=== PATIENT | female | born 1955 | race Caucasian/White ===

== ENCOUNTER 2021-02-28 03:20 | Inpatient (IN) | payer BC ==
[~2021-02-28] VITALS: Ht 165.1 cm; Wt 54.0 kg
[2021-02-28 03:47] LABS: HEMOGLOBIN 12.9 gm/dl (12.3-15.3); RED BLOOD COUNT 4.02 M/UL (4.00-5.10); WHITE BLOOD COUNT 9.8 K/UL (4.5-11.0)
[2021-02-28 04:26] LABS: BUN/CREATININE RATIO 15 (0-10)
[2021-02-28] MEDS ORDERED: ATENOLOL25 MG PO (06:06)
[2021-02-28] MEDS ORDERED: CHILDREN'S ASPI81 MG PO (06:06)
[2021-02-28] MEDS ORDERED: VITAMIN D 40400 UNIT PO (06:07)
[2021-02-28] MEDS ORDERED: MULTI-VITAMIN1 EACH PO (06:08)
[2021-02-28 14:55] LABS: HEMOGLOBIN 11.6 gm/dl (12.3-15.3); RED BLOOD COUNT 3.65 M/UL (4.00-5.10)
[2021-02-28 15:25] LABS: BUN/CREATININE RATIO 20 (0-10)
[2021-03-01 06:13] LABS: HEMOGLOBIN 11.1 gm/dl (12.3-15.3); RED BLOOD COUNT 3.5 M/UL (4.00-5.10); WHITE BLOOD COUNT 10.9 K/UL (4.5-11.0)
[2021-03-01 07:02] LABS: BUN/CREATININE RATIO 21 (0-10)
--- NOTE | 2021-03-01 22:18 | NUR ---
PT HAS BEEN STAYING LOW 87%-89%, PT HAS REMOVED O2 ON SEVERAL OCCASIONS, PT HAS BEEN MADE AWARE THAT THEIR O2 IS READING LOW.
--- NOTE | 2021-03-02 03:12 | NUR ---
PT STATES "I WANT TO TAKE THIS OXYGEN OFF FOR A HOUR, IT IS DRYING ME OUT AND HAS GIVEN ME A COLD". ADVISED PT THAT THEIR OXYGEN HAS BEEN LOW THROUGHOUT THE NIGHT AND IMPORTANCE OF WEARING OXYGEN TO KEEP O2 LEVEL UP AND HOW THIS COULD PUT MORE STRESS ON THEIR HEART GIVEN THE RECENT STEMI THEY SUFFERED FROM.
--- NOTE | 2021-03-02 05:09 | NUR ---
PT STATES "THIS NC IS DRIPPING WATER DOWN MY FACE I WANT TO TAKE IT OFF" EXPLAINED TO PT THE EFFECTS OF HAVING LOW O2. OFFERED A MASK TO TRY, RT CAME TO ROOM AND SWITCHED PT OVER TO MASK. PT STATES "THIS IS BETTER"
[2021-03-02 07:56] LABS: HEMOGLOBIN 11.5 gm/dl (12.3-15.3); RED BLOOD COUNT 3.73 M/UL (4.00-5.10); WHITE BLOOD COUNT 13.5 K/UL (4.5-11.0)
[2021-03-02 08:47] LABS: BUN/CREATININE RATIO 16 (0-10)
[2021-03-03 05:12] LABS: HEMOGLOBIN 12.5 gm/dl (12.3-15.3); RED BLOOD COUNT 3.96 M/UL (4.00-5.10); WHITE BLOOD COUNT 11.9 K/UL (4.5-11.0)
[2021-03-03 05:35] LABS: BUN/CREATININE RATIO 16 (0-10)
[2021-03-04 05:24] LABS: HEMOGLOBIN 13.8 gm/dl (12.3-15.3); RED BLOOD COUNT 4.27 M/UL (4.00-5.10); WHITE BLOOD COUNT 11.7 K/UL (4.5-11.0)
[2021-03-04 05:45] LABS: BUN/CREATININE RATIO 20 (0-10)
== END 2021-03-04 11:30 | disposition home or self-care (01) | DRG 246 ==
LOC: ER1 03:20 → CCU 03:44 → CDU 03:44 → CCU 05:52
PROVIDERS: Family Medicine; Internal Medicine Cardiovascular Disease; Internal Medicine Pulmonary Disease; Physician Assistant; ADMIT Internal Medicine Interventional Cardiology
PROC: 027034Z Dilation of Coronary Artery, One Artery with Drug-eluting Intraluminal Device, Percutaneous Approach (ICD-10-PCS; principal; 2021-02-28)
PROC: 03CY3ZZ Extirpation of Matter from Upper Artery, Percutaneous Approach (ICD-10-PCS; 2021-02-28)
PROC: B24BZZZ Ultrasonography of Heart with Aorta (ICD-10-PCS; 2021-02-28)
PROC: 3E02340 Introduction of Influenza Vaccine into Muscle, Percutaneous Approach (ICD-10-PCS; 2021-02-28)
PROC: 4A023N7 Measurement of Cardiac Sampling and Pressure, Left Heart, Percutaneous Approach (ICD-10-PCS; 2021-02-28)
PROC: B2111ZZ Fluoroscopy of Multiple Coronary Arteries using Low Osmolar Contrast (ICD-10-PCS; 2021-02-28)
PROC: 5A0935A Assistance with Respiratory Ventilation, Less than 24 Consecutive Hours, High Flow/Velocity Cannula (ICD-10-PCS; 2021-03-01)
DX: I21.19 ST elevation (STEMI) myocardial infarction involving other coronary artery of inferior wall (principal); R57.0 Cardiogenic shock; J96.01 Acute respiratory failure with hypoxia; I50.23 Acute on chronic systolic (congestive) heart failure; J98.11 Atelectasis; I11.0 Hypertensive heart disease with heart failure; I08.3 Combined rheumatic disorders of mitral, aortic and tricuspid valves; I50.9 Heart failure, unspecified; F17.210 Nicotine dependence, cigarettes, uncomplicated; Z20.822 Contact with and (suspected) exposure to COVID-19; N30.90 Cystitis, unspecified without hematuria; Z23 Encounter for immunization
CPT/HCPCS: ECHO; 36415; 36600; 71045; 80048; 80053; 81001; 82550; 82553; 82803; 83874; 84132; 84484; 85025; 85027; 85347; 85610; 85730; 87040; 87086; 90686; 92973; 93005; 93306; 93308; 94760; 97116; 97116-GP-CQ; 97162; 97530; 97530-GP-CQ; 99285; C1725; C1757; C1769; C1874; J0461; J0583; J1170; J1205; J1265; J1644; J1650; J1940; J2370; J2405; J3246; J7030; J7040; Q9965; U0002

== ENCOUNTER → 2021-06-26 | Outpatient (CLI) | payer BC ==
[~2021-06-26] MED LIST: ATENOLOL25 MG PO; CHILDREN'S ASPI81 MG PO; MULTI-VITAMIN1 EACH PO; VITAMIN D 40400 UNIT PO
== END ==
LOC: HEART 5 11:17
DX: I25.10 Atherosclerotic heart disease of native coronary artery without angina pectoris (principal); I25.2 Old myocardial infarction; I08.1 Rheumatic disorders of both mitral and tricuspid valves

== ENCOUNTER 2021-07-17 13:29 | Emergency (ER) | payer BC, OTHER ==
[~2021-07-17] VITALS: Ht 162.6 cm; Wt 61.2 kg
[2021-07-17 14:32] LABS: HEMOGLOBIN 14.5 gm/dl (12.3-15.3); RED BLOOD COUNT 4.6 M/UL (4.00-5.10); WHITE BLOOD COUNT 7.3 K/UL (4.5-11.0)
[2021-07-17 15:32] LABS: BUN/CREATININE RATIO 19 (0-10)
[2021-07-17] MEDS ORDERED: ALENDRONATE SOD70 MG PO (16:50)
[2021-07-17] MEDS ORDERED: METOPROLOL TART25 MG PO (16:50)
[2021-07-17] MEDS ORDERED: PROTONIX40 MG PO (16:51)
[2021-07-17] MEDS ORDERED: ATORVASTATIN CA80 MG PO (16:51)
[2021-07-17] MEDS ORDERED: TYLENOL SINUS1 EAC3 PO (16:52)
[2021-07-17] MEDS ORDERED: BRILINTA90 MG PO (16:52)
== END 2021-07-17 17:15 | disposition left against medical advice (07) ==
LOC: ER1 13:29 → CDU 15:53 → ER1 15:53
PROVIDERS: Emergency Medicine
DX: R07.89 Other chest pain (principal); R42 Dizziness and giddiness; Z20.822 Contact with and (suspected) exposure to COVID-19; I25.10 Atherosclerotic heart disease of native coronary artery without angina pectoris; E78.5 Hyperlipidemia, unspecified; K21.9 Gastro-esophageal reflux disease without esophagitis; Z88.0 Allergy status to penicillin; Z88.8 Allergy status to other drugs, medicaments and biological substances
CPT/HCPCS: 71045; 80053; 82550; 82553; 83690; 83735; 83880; 84100; 84439; 84443; 84484; 85025; 85610; 85730; 93005; 99283; U0002